=== PATIENT | female | born 1970 | race Caucasian/White ===

== ENCOUNTER → 2017-03-28 | Outpatient (CLI) | payer BC ==
--- NOTE | 2017-03-28 15:58 | MAMMOGRAPHY REPORT ---
BILATERAL DIGITAL SCREENING MAMMOGRAM TOMOSYNTHESIS WITH CAD: 03/28/2017 CLINICAL HISTORY: Routine screening. Patient has no complaints. TECHNIQUE: Breast tomosynthesis in addition to standard 2D mammography was performed. Current study was also evaluated with a Computer Aided Detection (CAD) system. COMPARISON: Comparison is made to exams dated: 09/04/2016 mammogram, 03/21/2016 mammogram, 06/14/2013 m ammogram - [facility], 04/18/2011 mammogram, 04/12/2011 mammogram, and 04/10/2010 mammo gram - [facility]. BREAST COMPOSITION: The tissue of both breasts is heterogeneously dense, which may obscure small mas ses. FINDINGS: No suspicious masses, calcifications, or areas of architectural distortion are noted in ei ther breast. There has been no significant interval change compared to prior exams. Bilateral asymme tries are stable. IMPRESSION: ACR BI-RADS CATEGORY 2: BENIGN There is no mammographic evidence of malignancy. A 1 year screening mammogram is recommended. The pa tient will receive written notification of the results. Approximately 10% of breast cancers are not detected with mammography. A negative mammographic report should not delay biopsy if a clinically suggestive mass is present. Marilyn Smith M.D. /:03/28/2017 13:36:44 [place] Helper: Veronica LISA(Rupa)(M), [facility] letter sent: Normal 1/2 BI-RADS Code: ACR BI-RADS Category 2: Benign
== END | disposition home or self-care (01) ==
LOC: C.MAMM 12:14
PROVIDERS: ATTEND Family Medicine
DX: Z12.31 Encounter for screening mammogram for malignant neoplasm of breast (principal)

== ENCOUNTER → 2017-12-17 | Outpatient (CLI) | payer BC, OTHER | END | disposition home or self-care (01) | LOC: C.RDSM 15:27 | PROVIDERS: ATTEND Family Medicine | DX: S83.241A Other tear of medial meniscus, current injury, right knee, initial encounter (principal); X58.XXXA Exposure to other specified factors, initial encounter; M25.461 Effusion, right knee ==

== ENCOUNTER 2021-10-25 15:22 | Observation (INO) ==
--- NOTE | 2021-10-25 16:12 | XRay Report ---
KUB CLINICAL HISTORY: constipation COMPARISON STUDY: CT of the abdomen and pelvis March 26, 2013. FINDINGS: Pelvic calcifications represent phleboliths. Bowel gas pattern is normal. Right abdominal surgical clip is noted. This is unchanged. There is no evidence for a bowel obstruction. Moderate lissette unt stool within the colon and is present. Moderate amount stool within the rectum is present. IMPRESSION: Moderate amount of stool within the colon and rectum. No bowel obstruction. ACT 112: Negative or not required by law. Electronically signed by: Hayden Robins M.D. 10/25/2021 4:11 PM
--- NOTE | 2021-10-25 20:15 | Emergency Department Note ---
Impression & Plan Ileus, Abdominal pain, Rectal pain, H/O hemorrhoidectomy ED Provider Note NAME: LEI NELSON AGE: 51 SEX: F : 1970 ARRIVES VIA: Walk-In INFORMANT: Patient, ED PROVIDER(S): Boogie Leon MD Chief Complaint: Rectal pain, recent hemorrhoidectomy, no BM x5 days HPI: Patient presents with concern for rectal abdominal pain status post recent hemorrhoidectomy completed by Dr. Asencio the dark at [facility] 5 days ago. The patient does complain of right-sided abdominal pain which is aching nonradiating. No recent falls or trauma. The patient denies any nausea or vomiting. The patient denies any alcohol tobacco or drug use. The patient is concerned about the possibility of ileus or obstruction. Patient states that she has tried to take stool softeners in addition to doing an enema yesterday but was unable to have a bowel movement. The patient does complain of postoperative discomfort of the rectum in the area where she had her hemorrhoidectomy. Patient denies any fevers or chills. ROS: See HPI for pertinent positives and negatives. A total of 10 systems were reviewed and otherwise negative. Past medical history: See below Surgical history: See below Social history: See below Physical Exam: GENERAL: Laying prone on the bed. NAD, non-toxic. EYE EXAM: Normal conjunctiva. PERRL, no anisocoria and EOM's grossly intact w/o pain. NECK: Supple, no nuchal rigidity, no adenopathy, non-tender. No signs of meningismus. LUNGS: Clear to auscultation. Normal chest wall mechanics. HEART: NSR, no MRG. ABDOMEN: Abdomen soft, mild right-sided mid abdominal discomfort without peritonitis, normo-active bowel sounds, no masses, no rebound or guarding. BACK: No CVA TTP. SKIN: No rashes and no bruising. Rectal: External exam shows sutures in place no active bleeding, no surrounding erythema or fluctuance noted. UPPER EXTREMITIES: Upper extremities are grossly normal. LOWER EXTREMITIES: Grossly normal, no edema. NEURO EXAM: A&O x3, cranial nerves II-XII grossly intact, normal speech, moves all 4 extremities on command w/o issue. Differential diagnoses: Appendicitis, ovarian cyst, ovarian torsion, ectopic , TOA, PID, infections, diverticulitis, UTI, obstruction, mesenteric ischemia, aortic pathology, inflammatory bowel disease, renal colic, PUD, pancreatitis, biliary pathology, hernia, volvulus, constipation, as well as other pathologies. Course: Patient was seen and evaluated the bedside. Full history physical exam was performed. Imaging Studies: See Below Cardiac monitoring: An order was placed for continuous cardiac monitoring. The monitor shows a rate of 72 with sinus rhythm. MDM: Patient was seen due to concern for rectal discomfort and associated inability have a bowel movement for 5 days. Patient had triage x-ray which was unremarkable. Patient did have blood work along with CT he was treated symptomatically with pain medication nausea medication as a precaution in addition to topical lidocaine. Patient CT shows fecal stasis with no evidence of impaction. The patient does have associated fluid-filled loops of small bowel which may relate to ileus. Given the possibility of ileus I did speak with the on-call surgery Manjinder Carl and asked with note patient could receive enema by mouth medications. He stated this would not be contraindicated after speaking with Dr. Villalobos. Patient was ordered mag citrate docusate senna and milk of mol asses enema. The patient did attempt an bowel movement still was unable to do so. Patient was still having significant discomfort and felt unable to go home at this time. I did speak the on-call hospitalist for observation. Patient was admitted by Dr. Morelos. Past Med/Surg History Medical History Sensorineural hearing loss of both ears Tinnitus, bilateral Surgical History H/O hemorrhoidectomy Social History Smoking Status: Never smoker Feels Safe at Home: Yes Allergies Allergies Allergy/AdvReac Type Severity Reaction Status Date / Time No Known Allergies Allergy Unverified 10/25/21 20:33 Home Meds Home Medications Medication Instructions Recorded Confirmed oxycodone-acetaminophen 5 mg-325 1 tab PO Q6 PRN 10/25/21 10/25/21 mg tablet sertraline 50 mg tablet 50 mg PO DAILY 10/25/21 10/25/21 Results & Data (ED) Vital Signs Vital Signs - 24 hr 10/25/21 15:32 10/25/21 20:20 10/25/21 21:24 Temperature 36.3 C L Temperature Source Temporal Artery Scan Pulse Rate 94 H Pulse Rate [Finger] 67 64 Respiratory Rate 17 16 16 Respiratory Effort / Characteristics Non-Labored Spontaneous Respiratory Depth Normal Blood Pressure 112/79 Blood Pressure [Left Arm] 143/86 H 120/71 Blood Pressure Mean 90 Blood Pressure Mean [Left Arm] 105 87 Pulse Oximetry 97 98 98 Oxygen Delivery Method Room Air Room Air Room Air Sepsis Recent Fever Within 48 Hours No Sepsis New/Unexplained Change in Mental Status No Sepsis Action Taken by Nursing No Action Required 10/25/21 23:14 Temperature Temperature Source Pulse Rate Pulse Rate [Finger] 68 Respiratory Rate 18 Respiratory Effort / Characteristics Respiratory Depth Blood Pressure Blood Pressure [Left Arm] 108/74 Blood Pressure Mean Blood Pressure Mean [Left Arm] 85 Pulse Oximetry 96 Oxygen Delivery Method Room Air Sepsis Recent Fever Within 48 Hours Sepsis New/Unexplained Change in Mental Status Sepsis Action Taken by [facility] Medications Current Medication List: was personally reviewed by me Laboratory Data Attestation: I reviewed the patient's lab results. Result diagrams: 10/25/21 20:36 10/25/21 20:36 Lab Results 10/25/21 10/25/21 Range/Units 20:36 20:36 WBC 11.19 H (4.8-10.8) K/uL RBC 4.71 (4.2-5.4) M/uL Hgb 13.8 (12.0-16.0) g/dL Hct 41.9 (37-47) % MCV 89.0 (80-100) fL MCH 29.3 (25-34) pg MCHC 32.9 (32-36) g/dL RDW Std Deviation 42.8 (36.4-46.3) fL RDW Coeff of Martha 13.0 (11.5-14.5) % Plt Count 318 (130-400) K/uL MPV 9.0 (7.4-10.4) fL Immature Gran % (Auto) 0.6 % Neut % (Auto) 67.3 % Lymph % (Auto) 23.6 % Alger % (Auto) 6.9 % Eos % (Auto) 1.3 % Baso % (Auto) 0.3 % Neut # (Auto) 7.54 H (1.4-6.5) K/uL Lymph # (Auto) 2.64 (1.2-3.4) K/uL Alger # (Auto) 0.77 H (0.11-0.59) K/uL Eos # (Auto) 0.14 (0-0.5) K/uL Baso # (Auto) 0.03 (0-0.2) K/uL Immature Gran # (Auto) 0.07 H (0.00-0.02) K/uL Sodium 136 (136-145) mmol/L Potassium 3.7 (3.5-5.1) mmol/L Chloride 104 (98-107) mmol/L Carbon Dioxide 27 (21-32) mmol/L Anion Gap 5 (3-11) BUN 8 (6-23) mg/dl Creatinine 0.65 (0.6-1.2) mg/dl Est Cr Clr Drug Dosing Not Reportable Est GFR ( Amer) 119.1 ml/min Est GFR (Non-Af Amer) 102.8 ml/min BUN/Creatinine Ratio 12.3 (10-20) Glucose 96 (70-99(Fasting)) mg/dl Calcium 8.8 (8.5-10.1) mg/dl Total Bilirubin 0.5 (0.2-1.0) mg/dl AST 13 (13-39) U/L ALT 17 (7-52) U/L Alkaline Phosphatase 56 (34-104) U/L Total Protein 6.4 (6.0-8.3) gm/dl Albumin 3.9 (3.4-5.0) gm/dl Globulin 2.5 (2.5-4.0) gm/dl Albumin/Globulin Ratio 1.6 (0.9-2) Lipase 15 (11-82) U/L Administered Medications Discontinued Medications Diphenhydramine HCl (Diphenhydramine 50 Mg/Ml Vial) 12.5 mg IV NOW STA Stop: 10/25/21 22:14 Last Admin: 10/25/21 22:26 Dose: 12.5 mg Documented by: [id number] Sodium Chloride (Nss 1000ml) 1,000 mls @ 999 mls/hr IV .Q1H1M ONE Stop: 10/25/21 21:29 Last Infusion: 10/25/21 22:06 Dose: 0 mls/hr Documented by: [id number] Admin: 10/25/21 20:55 Dose: 999 mls/hr Documented by: [id number] Ioversol (Optiray 320 100ml) 93 ml IV ONCE ONE Stop: 10/25/21 21:11 Last Admin: 10/25/21 21:14 Dose: 93 ml Documented by: [id number] Lidocaine (Lidocaine 5% Oint 30 Gm Tube) 1 appln EXT NOW STA Stop: 10/25/21 21:36 Last Admin: 10/25/21 22:25 Dose: 1 appln Documented by: [id number] Magnesium Citrate (Magnesium Citrate 296 Ml/Btl) 296 ml PO NOW STA Stop: 10/25/21 21:56 Last Admin: 10/25/21 22:26 Dose: 296 ml Documented by: [id number] Morphine Sulfate (Morphine Sulfate 4 Mg/Ml 1 Ml Carp\Vial) 4 mg IV NOW STA Stop: 10/25/21 20:30 Last Admin: 10/25/21 20:55 Dose: 4 mg Documented by: [id number] Morphine Sulfate (Morphine Sulfate 4 Mg/Ml 1 Ml Carp\Vial) 4 mg IV NOW STA Stop: 10/25/21 22:14 Last Admin: 10/25/21 22:25 Dose: 4 mg Documented by: [id number] Ondansetron HCl (Ondansetron Inj 2 Mg/Ml 2 Ml Vial) 4 mg IV NOW STA Stop: 10/25/21 20:30 Last Admin: 10/25/21 20:55 Dose: 4 mg Documented by: [id number] Senna/Docusate Sodium (Docusate Sodium/Senna 50/8.6mg Tab) 1 tab PO NOW STA Stop: 10/25/21 21:56 Last Admin: 10/25/21 22:26 Dose: 1 tab Documented by: [id number] Imaging Data Radiologist's Impression: KUB X-Ray 10/25/21 15:37 KUB CLINICAL HISTORY: constipation COMPARISON STUDY: CT of the abdomen and pelvis March 26, 2013. FINDINGS: Pelvic calcifications represent phleboliths. Bowel gas pattern is normal. Right abdominal surgical clip is noted. This is unchanged. There is no evidence for a bowel obstruction. Moderate amount stool within the colon and is present. Moderate amount stool within the rectum is present. IMPRESSION: Moderate amount of stool within the colon and rectum. No bowel obstruction. ACT 112: Negative or not required by law. Electronically signed by: Hayden Robins M.D. 10/25/2021 4:11 PM Abdomen/Pelvis CT 10/25/21 20:29 CT abd pelvis IV con only CLINICAL HISTORY: no BM x 5 days, hemorrhoidectomy, R sided ab pain COMPARISON STUDY: 03/26/2013 CT DOSE: 308.42 mGy.cm TECHNIQUE: Standard CT of the Abdomen and Pelvis was performed with IV contrast. A dose lowering technique was utilized adhering to the principles of ALARA. Contrast Volume: Optiray 320, 93 ml. The patient did not receive oral contrast. FINDINGS: Lung base: The lung bases are clear. Abdominal cavity: There is no evidence for abdominal mass, adenopathy or ascites. Liver: There is homogeneous attenuation of the liver parenchyma. There is no evidence for enhancing mass lesion. Spleen: There is homogeneous attenuation of the splenic parenchyma. There is no enhancing mass lesion. Pancreas: There is homogeneous attenuation of the pancreatic parenchyma. There is no evidence for mass lesion or peripancreatic fluid collection. Gall Bladder: Surgical clips are present. Adrenal glands: The adrenal glands are normal in size and attenuation. There is no evidence for enhancing mass lesion. Kidneys: There is homogeneous attenuation of the renal parenchyma bilaterally. There are again stable nonobstructing bilateral renal calculi with no evidence for hydronephrosis. There is no evidence for enhancing mass. Bowel: There is moderate fecal stasis without evidence for impaction. Fluid- filled loops of small bowel are seen throughout the abdomen and pelvis without evidence for disproportionate dilatation. The findings are characteristic of an ileus versus gastroenteritis. They could also be a reflection of the thecal stasis. There is no evidence for mass lesion. There are no inflammatory changes present. There is no evidence for free air. There is a normal appendix in the right lower quadrant. Bladder: The bladder is mildly distended with no evidence for focal mass, calculus or diverticulum. : There is no evidence for pelvic mass or adenopathy. There is no evidence for pelvic ascites. Vasculature: There is no evidence for aneurysmal dilatation of the abdominal aorta. Osseous structures: There is no acute osseous pathology. IMPRESSION: 1. Moderate fecal stasis without evidence for impaction. 2. Associated fluid-filled loops of small bowel which may relate to an ileus, gastroenteritis or be secondary to the fecal impaction. 3. No other evidence for acute intra-abdominal or pelvic abnormality. 4. Additional nonacute findings are delineated above. ACT 112: Negative or not required by law. Electronically signed by: Juan Huntley M.D. 10/25/2021 9:32 PM Discharge Plan Visit Data Chief Complaint: Abdominal Pain Stated Complaint: BOWEL BLOCKAGE POST OP, KNEE PAIN, ABDOMINAL PAIN ED Provider: Boogie Leon Discharge Problem: Ileus, Abdominal pain, Rectal pain, H/O hemorrhoidectomy Patient Disposition: Admitted As Inpatient Forms Stand Alone Forms: [facility] [employer] Prescriptions Prescriptions: No Action oxycodone-acetaminophen 5-325 mg tablet 1 tab PO Q6 PRN (Reason: Pain) RF: 0 sertraline 50 mg tablet 50 mg PO DAILY RF: 0 Referrals Referrals: Alda Vasquez DO [Primary Care Provider] -
[2021-10-25] MEDS ORDERED: SODIUM CHLORIDE 0.9% 1000ML 1,000 ML IV ONE (20:29)
[2021-10-25] MEDS ORDERED: MoRPHine SULFATE 4 MG/ML 1 ML CARP\\VIAL IV STA ×2 (20:29→22:13)
[2021-10-25] MEDS ORDERED: ONDANSETRON INJ 2 MG/ML 2 ML VIAL IV STA (20:29)
[2021-10-25 20:46] LABS: Basophils # (auto) 0.03 K/uL (0-0.2); Basophils % (auto) 0.3 %; Eosinophils # (auto) 0.14 K/uL (0-0.5); Eosinophils % (auto) 1.3 %; Hematocrit (blood only) 41.9 % (37-47); Hemoglobin 13.8 g/dL (12.0-16.0); Immature Granulocytes # (auto) 0.07 K/uL (0.00-0.02); Immature Granulocytes % (auto) 0.6 %; Lymphocytes # (auto) 2.64 K/uL (1.2-3.4); Lymphocytes % (auto) 23.6 %; Mean Corpuscular Hemoglobin 29.3 pg (25-34); Mean Corpuscular Hgb Conc 32.9 g/dL (32-36); Monocytes # (auto) 0.77 K/uL (0.11-0.59); Monocytes % (auto) 6.9 %; Neutrophils # (auto) 7.54 K/uL (1.4-6.5); Neutrophils % (auto) 67.3 %; Platelet Count 318 K/uL (130-400); RDW Standard Deviation 42.8 fL (36.4-46.3); Red Blood Count 4.71 M/uL (4.2-5.4); White Blood Count 11.19 K/uL (4.8-10.8)
[2021-10-25 21:07] LABS: Alanine Aminotransferase 17 U/L (7-52); Albumin Globulin Ratio 1.6 (0.9-2); Albumin Level 3.9 gm/dl (3.4-5.0); Alkaline Phosphatase 56 U/L (34-104); Anion Gap 5 (3-11); Aspartate Aminotransferase 13 U/L (13-39); BUN Creatinine Ratio 12.3 (10-20); Bilirubin,Total 0.5 mg/dl (0.2-1.0); Blood Urea Nitrogen 8 mg/dl (6-23); Calcium 8.8 mg/dl (8.5-10.1); Carbon Dioxide 27 mmol/L (21-32); Chloride 104 mmol/L (98-107); Est GFR (African American) 119.1 ml/min; Est GFR (Non-African American) 102.8 ml/min; Globulin 2.5 gm/dl (2.5-4.0); Glucose 96 mg/dl (70-99(Fasting)); Lipase 15 U/L (11-82); Potassium 3.7 mmol/L (3.5-5.1); Sodium 136 mmol/L (136-145); Total Protein 6.4 gm/dl (6.0-8.3)
[2021-10-25] MEDS ORDERED: OPTIRAY 320 100ml IV ONE (21:10)
[2021-10-25] MEDS ORDERED: LIDOCAINE 4% TOP 50 ML VIAL EXT ONE (21:26)
--- NOTE | 2021-10-25 21:34 | CT Scan Report ---
CT abd pelvis IV con only CLINICAL HISTORY: no BM x 5 days, hemorrhoidectomy, R sided ab pain COMPARISON STUDY: 03/26/2013 CT DOSE: 308.42 mGy.cm TECHNIQUE: Standard CT of the Abdomen and Pelvis was performed with IV contrast. A dose lowering nhan hnique was utilized adhering to the principles of ALARA. Contrast Volume: Optiray 320, 93 ml. The patient did not receive oral contrast. FINDINGS: Lung base: The lung bases are clear. Abdominal cavity: There is no evidence for abdominal mass, adenopathy or ascites. Liver: There is homogeneous attenuation of the liver parenchyma. There is no evidence for enhancing m ass lesion. Spleen: There is homogeneous attenuation of the splenic parenchyma. There is no enhancing mass lesion . Pancreas: There is homogeneous attenuation of the pancreatic parenchyma. There is no evidence for mas s lesion or peripancreatic fluid collection. Gall Bladder: Surgical clips are present. Adrenal glands: The adrenal glands are normal in size and attenuation. There is no evidence for enhan cing mass lesion. Kidneys: There is homogeneous attenuation of the renal parenchyma bilaterally. There are again stable nonobstructing bilateral renal calculi with no evidence for hydronephrosis. There is no evidence for enhancing mass. Bowel: There is moderate fecal stasis without evidence for impaction. Fluid-filled loops of small bow el are seen throughout the abdomen and pelvis without evidence for disproportionate dilatation. The f indings are characteristic of an ileus versus gastroenteritis. They could also be a reflection of the thecal stasis. There is no evidence for mass lesion. There are no inflammatory changes present. Ther e is no evidence for free air. There is a normal appendix in the right lower quadrant. Bladder: The bladder is mildly distended with no evidence for focal mass, calculus or diverticulum. : There is no evidence for pelvic mass or adenopathy. There is no evidence for pelvic ascites. Vasculature: There is no evidence for aneurysmal dilatation of the abdominal aorta. Osseous structures: There is no acute osseous pathology. IMPRESSION: 1. Moderate fecal stasis without evidence for impaction. 2. Associated fluid-filled loops of small bowel which may relate to an ileus, gastroenteritis or be s econdary to the fecal impaction. 3. No other evidence for acute intra-abdominal or pelvic abnormality. 4. Additional nonacute findings are delineated above. ACT 112: Negative or not required by law. Electronically signed by: Juan Huntley M.D. 10/25/2021 9:32 PM
[2021-10-25] MEDS ORDERED: LIDOCAINE 5% OINT 30 GM TUBE EXT STA (21:35)
[2021-10-25] MEDS ORDERED: DOCUSATE SODIUM/SENNA 50/8.6MG TAB PO STA (21:55)
[2021-10-25] MEDS ORDERED: MAGNESIUM CITRATE 296 ML/BTL PO STA (21:55)
[2021-10-25] MEDS ORDERED: diphenhydrAMINE 50 MG/ML VIAL IV STA (22:13)
[2021-10-26] MEDS ORDERED: MoRPHine SULFATE 2 MG/ML CARP IV STA (00:21)
--- NOTE | 2021-10-26 00:59 | Surgery Consultation ---
Date of Consultation October 26, 2021 Assessment & Plan (1) Ileus: Patient is being admitted to the hospital and the hospitalist service. Recommend proceeding as follows: Provide analgesics Provide antiemetics as needed Mild limited oral intake (would recommend liquids only for the present time) until patient has improved bowel function Consider initiating IV fluid for hydration if oral intake remains limited Taking patient on bowel regimen I discussed with the patient that she likely has an ileus related to a combination of things including her recent surgery as well as concomitant use of pain medication that she is taking for postoperative pain. At the time of my exam of the patient she did not have any evidence of acute abdomen as her abdomen was soft with positive bowel sounds and she was passing flatus. There is no need for acute surgical invention at this time. Remainder of plan as directed by the admitting service. Further surgical plans will be directed by the [facility] surgical service who will assume surgical care tomorrow. Supervising Physician Co-Signing Physician Notes Dr. Villalobos-patient admitted to the medical team with apparent ileus post hemorrhoidectomy as an outpatient I did not see the patient but I did briefly discussed the patient with Manjinder Henry. She is a patient of Dr. Asencio Manjinder will discuss her admission with covering surgical team History of Present Illness Reason for Consultation: Constipation/ileus History of Present Illness This is a 51-year-old female who underwent a hemorrhoidectomy secondary to prolapsed hemorrhoids on October 22 of this year. The surgery was performed at [facility] by Dr. Asencio of [facility] surgical department. Patient presented to the emergency department secondary to some generalized pain at her surgical site as well as generalized right sided abdominal pain and not being able to have a bowel movement. She reports her most recent bowel movement was on October 20 of this year which was 2 days prior to her surgery. She says that the abdominal discomfort is nonradiating. She denies any palliative or provocative factors. She has not had any nausea vomiting. She denies any fevers, shakes, chills. Patient notes that she is able to pass small amounts of flatus. The patient says that she is taken some stool softeners and also an enema yesterday but despite this problem was not able to have a bowel movement. Patient also adds that she has been taking Percocet as prescribed for postoperative pain. Today in the emergency department the patient had labs and imaging which independent reviewed. A CBC revealed white blood cell count was 11.1. Hemoglobin, hematocrit, and platelet count were within normal range. Chemistry profile showed sodium, potassium, BUN, and creatinine were within normal range. There is no significant elevation of LFTs or lipase. KUB was performed that showed a moderate amount of stool within the colon and rectum with no evidence of bowel obstruction. A CT scan of the abdomen pelvis showed the patient had a moderate amount of fecal stasis located in the colon without evidence of fecal impaction. Some associated fluid-filled loops of small bowel which were felt to represent a likely ileus. In the emergency department the patient was provided with some morphine as well as Zofran. In addition topical lidocaine was prescribed for her hemorrhoid surgical site. She was also given Senokot as well as magnesium citrate but was still unable to have a bowel movement. Because of this the treating emergency room physician felt that observation in the hospital was warranted. At the time of my interview the patient was in no distress. Allergies Allergy/AdvReac Type Severity Reaction Status Date / Time No Known Allergies Allergy Unverified 10/25/21 20:33 Home Medications Medication Instructions Recorded Confirmed Type oxycodone-acetaminophen 5 mg-325 1 tab PO Q6 PRN 10/25/21 10/25/21 History mg tablet sertraline 50 mg tablet 50 mg PO DAILY 10/25/21 10/25/21 History Patient History Medical History Sensorineural hearing loss of both ears Tinnitus, bilateral Surgical History H/O hemorrhoidectomy Social History Smoking Status: Never smoker Hx Alcohol Use: Yes Alcohol type: beer and wine Hx Substance Use: No Beliefs That Will Affect Care: None Current Living Situation: Family Feels Safe at Home: Yes Safety Concerns: Feels Safe At This Time Assistive Devices: Brace/Splint/Immobilizer and Glasses Assistive Devices Comment: R knee brace Review of Systems Constitutional: no fever and no chills Eyes: no diplopia Ear, Nose, Mouth, Throat: no ear pain Respiratory: no cough and no dyspnea Cardiovascular: no chest pain Gastrointestinal: + constipation; no abdominal pain, no nausea and no vomiting Genitourinary: no dysuria Musculoskeletal: no back pain Integumentary: no rash Neurologic: no localized weakness Physical Exam Constitutional: well developed and well nourished; no acute distress Eyes: no conjunctival abnormality ENMT: Ears: no hearing impairment Neck: trachea midline Respiratory: normal respiratory effort; no respiratory distress and no labored breathing Cardiovascular: Rate/Rhythm: regular rate and regular rhythm Gastrointestinal (Abdomen): Abdomen is soft. It is mildly distended. Bowel sounds are present. There is minimal pain with palpation. No rebound tenderness or guarding. Musculoskeletal: No calf tenderness Skin: no rashes Neurologic: moves all extremities Results & Data ([facility]) Vital Signs (Past 12 Hours) Vital Signs Temp Pulse Pulse Resp BP BP Pulse Ox 10/25/21 23:14 68 18 108/74 96 10/25/21 21:24 64 16 120/71 98 10/25/21 20:20 67 16 143/86 H 98 10/25/21 15:32 36.3 C L 94 H 17 112/79 97 PG Care Time/CCT Total # of Minutes Spent Total Time Spent with Patient: Total time spent is greater than 50% in coordination of care (as documented) at patient's floor/unit and/or counseling patient: Coding Level of Care Code 62418 Inpt Consult Level 5 Diagnoses Ileus K56.7
[2021-10-26] MEDS ORDERED: LACTULOSE SYRUP 20 GM/30 ML UDC PO STA (01:45)
[2021-10-26] MEDS ORDERED: LACTULOSE SYRUP 20 GM/30 ML UDC ONE ×2 (01:55→01:57)
--- NOTE | 2021-10-26 02:52 | History & Physical Report ---
Date of Service October 26, 2021 Assessment & Plan (1) Abdominal pain: Plan: Recent hemorrhoidectomy Ileus/narcotic induced constipation Anxiety/mood disorder, at baseline OBS GMF Bowel rest, bowel regimen Consider methylnaltrexone if without response to laxative agents Surgery consult Re: Postop eval DVT prophylaxis. SCDs Re: Bleeding ulcer hemorrhoidectomy site Full code Text document was generated using [employer] voice recognition software. It may contain grammatical or spelling errors. Kindly contact undersigned for clarification of any documentation item in question. History of Present Illness Chief Complaint: Constipation, abdominal pain Primary Care Provider: Alda Vasquez DO History obtained from patient and records. Medical history significant for anxiety/mood disorder, hemorrhoids status post recent surgery, history GDM. Patient underwent outpatient complex hemorrhoidectomy for grade 4 internal hemorrhoids at [facility] 4 days ago. No BM for about 6 days now. Patient taking Percocet 3 times daily. Worsening right-sided abdominal discomfort with nausea without emesis. No chest pain, no S OB, no fever, no chills. Expected rectal pain from bleeding post hemorrhoidectomy site according to patient. Patient consulted ER for worsening symptoms. Medical History as above Surgical History : Hemorrhoidectomy, cholecystectomy, BTL, umbilical hernia repair Family History : Colon cancer, disease, essential tremors, DM Personal/Social history : Non-smoker, no EtOH intake, [employer] employee Allergies Allergy/AdvReac Type Severity Reaction Status Date / Time No Known Allergies Allergy Unverified 10/25/21 20:33 Home Medications Medication Instructions Recorded Confirmed Type oxycodone-acetaminophen 5 mg-325 1 tab PO Q6 PRN 10/25/21 10/25/21 History mg tablet sertraline 50 mg tablet 50 mg PO DAILY 10/25/21 10/25/21 History oxycodone-acetaminophen 5 mg-325 1 tab PO Q6H PRN #20 tab 10/26/21 Rx mg tablet tramadol 50 mg tablet 50 mg PO Q6H PRN #20 tab 10/26/21 Rx Past Med/Surg History Medical History Sensorineural hearing loss of both ears Tinnitus, bilateral Surgical History H/O hemorrhoidectomy Social History Smoking Status: Never smoker Hx Alcohol Use: Yes Alcohol type: beer and wine Hx Substance Use: No Beliefs That Will Affect Care: None Current Living Situation: Family Feels Safe at Home: Yes Safety Concerns: Feels Safe At This Time Assistive Devices: None Assistive Devices Comment: R knee brace Review of Systems Review of Systems: As per HPI, all 10 systems reviewed, all other ROS negative Physical Exam Physical Exam: GENERAL: Slightly uncomfortable, no respiratory distress SKIN: Normal color, warm HEENT: Morning Sun palpebral conjunctivae, no ptosis, dry buccal mucosa NECK : Supple, no tenderness CHEST : CTA, no tenderness HEART : RRR, no obvious murmurs ABDOMEN: Some distention, minimal hypogastric tenderness EXTREMITIES : No LE swelling/tenderness, no other conspicuous deformities noted NEUROLOGIC : Coherent, no facial asymmetry, no other gross focality Results & Data Results & Data ([facility]) Vital Signs (Past 12 Hours) Vital Signs Temp Pulse Pulse Resp BP BP Pulse Ox 10/26/21 01:00 74 16 118/59 L 94 10/25/21 23:14 68 18 108/74 96 10/25/21 21:24 64 16 120/71 98 10/25/21 20:20 67 16 143/86 H 98 10/25/21 15:32 36.3 C L 94 H 17 112/79 97 Laboratory Results Laboratory Results WBC 11.19 K/uL (4.8-10.8) H 10/25/21 20:36 RBC 4.71 M/uL (4.2-5.4) 10/25/21 20:36 Hgb 13.8 g/dL (12.0-16.0) 10/25/21 20:36 Hct 41.9 % (37-47) 10/25/21 20:36 MCV 89.0 fL (80-100) 10/25/21 20:36 MCH 29.3 pg (25-34) 10/25/21 20:36 MCHC 32.9 g/dL (32-36) 10/25/21 20:36 RDW Std Deviation 42.8 fL (36.4-46.3) 10/25/21 20:36 RDW Coeff of Martha 13.0 % (11.5-14.5) 10/25/21 20:36 Plt Count 318 K/uL (130-400) 10/25/21 20:36 MPV 9.0 fL (7.4-10.4) 10/25/21 20:36 Immature Gran % (Auto) 0.6 % 10/25/21 20:36 Neut % (Auto) 67.3 % 10/25/21 20:36 Lymph % (Auto) 23.6 % 10/25/21:36 Long % (Auto) 6.9 % 10/25/21 20:36 Eos % (Auto) 1.3 % 10/25/21 20:36 Baso % (Auto) 0.3 % 10/25/21:36 Neut # (Auto) 7.54 K/uL (1.4-6.5) H 10/25/21:36 Lymph # (Auto) 2.64 K/uL (1.2-3.4) 10/25/21 20:36 Long # (Auto) 0.77 K/uL (0.11-0.59) H 10/25/21 20:36 Eos # (Auto) 0.14 K/uL (0-0.5) 10/25/21 20:36 Baso # (Auto) 0.03 K/uL (0-0.2) 10/25/21 20:36 Immature Gran # (Auto) 0.07 K/uL (0.00-0.02) H 10/25/21 20:36 Sodium 136 mmol/L (136-145) 10/25/21 20:36 Potassium 3.7 mmol/L (3.5-5.1) 10/25/21 20:36 Chloride 104 mmol/L (98-107) 10/25/21 20:36 Carbon Dioxide 27 mmol/L (21-32) 10/25/21:36 Anion Gap 5 (3-11) 10/25/21 20:36 BUN 8 mg/dl (6-23) 10/25/21 20:36 Creatinine 0.65 mg/dl (0.6-1.2) 10/25/21 20:36 Est Cr Clr Drug Dosing Not Reportable 10/25/21: Est GFR ( Amer) 119.1 ml/min 02/10/22 20:36 Est GFR (Non-Af Amer) 102.8 ml/min 10/25/21 20:36 BUN/Creatinine Ratio 12.3 (10-20) 10/25/21 20:36 Glucose 96 mg/dl (70-99(Fasting)) 10/25/21 20:36 Calcium 8.8 mg/dl (8.5-10.1) 10/25/21 20:36 Total Bilirubin 0.5 mg/dl (0.2-1.0) 10/25/21 20:36 AST 13 U/L (13-39) 10/25/21 20:36 ALT 17 U/L (7-52) 10/25/21 20:36 Alkaline Phosphatase 56 U/L (34-104) 10/25/21 20:36 Total Protein 6.4 gm/dl (6.0-8.3) 10/25/21 20:36 Albumin 3.9 gm/dl (3.4-5.0) 10/25/21 20:36 Globulin 2.5 gm/dl (2.5-4.0) 10/25/21 20:36 Albumin/Globulin Ratio 1.6 (0.9-2) 10/25/21 20:36 Lipase 15 U/L (11-82) 10/25/21 20:36 SARS-CoV-2, RNA, NAAT NEGATIVE (NEGATIVE) 10/26/21 00:40 Impressions KUB X-Ray 10/25/21 15:37 KUB CLINICAL HISTORY: constipation COMPARISON STUDY: CT of the abdomen and pelvis March 26, 2013. FINDINGS: Pelvic calcifications represent phleboliths. Bowel gas pattern is normal. Right abdominal surgical clip is noted. This is unchanged. There is no evidence for a bowel obstruction. Moderate amount stool within the colon and is present. Moderate amount stool within the rectum is present. IMPRESSION: Moderate amount of stool within the colon and rectum. No bowel obstruction. ACT 112: Negative or not required by law. Electronically signed by: Hayden Robins M.D. 10/25/2021 4:11 PM Abdomen/Pelvis CT 10/25/21 20:29 CT abd pelvis IV con only CLINICAL HISTORY: no BM x 5 days, hemorrhoidectomy, R sided ab pain COMPARISON STUDY: 03/26/2013 CT DOSE: 308.42 mGy.cm TECHNIQUE: Standard CT of the Abdomen and Pelvis was performed with IV contrast. A dose lowering technique was utilized adhering to the principles of ALARA. Contrast Volume: Optiray 320, 93 ml. The patient did not receive oral contrast. FINDINGS: Lung base: The lung bases are clear. Abdominal cavity: There is no evidence for abdominal mass, adenopathy or ascites. Liver: There is homogeneous attenuation of the liver parenchyma. There is no evidence for enhancing mass lesion. Spleen: There is homogeneous attenuation of the splenic parenchyma. There is no enhancing mass lesion. Pancreas: There is homogeneous attenuation of the pancreatic parenchyma. There is no evidence for mass lesion or peripancreatic fluid collection. Gall Bladder: Surgical clips are present. Adrenal glands: The adrenal glands are normal in size and attenuation. There is no evidence for enhancing mass lesion. Kidneys: There is homogeneous attenuation of the renal parenchyma bilaterally. There are again stable nonobstructing bilateral renal calculi with no evidence for hydronephrosis. There is no evidence for enhancing mass. Bowel: There is moderate fecal stasis without evidence for impaction. Fluid- filled loops of small bowel are seen throughout the abdomen and pelvis without evidence for disproportionate dilatation. The findings are characteristic of an ileus versus gastroenteritis. They could also be a reflection of the thecal stasis. There is no evidence for mass lesion. There are no inflammatory changes present. There is no evidence for free air. There is a normal appendix in the right lower quadrant. Bladder: The bladder is mildly distended with no evidence for focal mass, calculus or diverticulum. : There is no evidence for pelvic mass or adenopathy. There is no evidence for pelvic ascites. Vasculature: There is no evidence for aneurysmal dilatation of the abdominal aorta. Osseous structures: There is no acute osseous pathology. IMPRESSION: 1. Moderate fecal stasis without evidence for impaction. 2. Associated fluid-filled loops of small bowel which may relate to an ileus, gastroenteritis or be secondary to the fecal impaction. 3. No other evidence for acute intra-abdominal or pelvic abnormality. 4. Additional nonacute findings are delineated above. ACT 112: Negative or not required by law. Electronically signed by: Juan Huntley M.D. 10/25/2021 9:32 PM (1) Abdominal pain Abdominal location: unspecified location Qualified Code(s): R10.9 - Unspecified abdominal pain
[2021-10-26] MEDS ORDERED: IBUPROFEN 200 MG TAB PO PRN (02:58)
[2021-10-26] MEDS ORDERED: LACTATED RINGER'S 1,000 ML IV STA (02:59)
[2021-10-26 03:18] LABS: Magnesium 2.1 mg/dl (1.7-2.4)
[2021-10-26] MEDS ORDERED: LACTULOSE SYRUP 20 GM/30 ML UDC PO ONE (03:30)
[2021-10-26] MEDS ORDERED: POLYETHYLENE (MIRALAX) 17 GM PACK PO PRN (03:39)
[2021-10-26] MEDS ORDERED: PROMETHAZINE HCL 12.5 MG in SODIUM CHLORIDE 0.9% 50 ML IV PRN (03:39)
[2021-10-26] MEDS ORDERED: LORazepam 0.5 MG/1 ML VIAL IV PRN (03:39)
[2021-10-26] MEDS: oxyCODONE HCL IR 5 MG TAB (IMMEDIATE RELEASE) PO PRN ×2 (03:46→11:01)
[2021-10-26] MEDS ORDERED: diphenhydrAMINE 50 MG/ML VIAL IV STA (07:59)
[2021-10-26] MEDS: DOCUSATE SODIUM/SENNA 50/8.6MG TAB PO SCH ×2 (08:12→20:06)
[2021-10-26] MEDS: SERTRALINE HCL 50 MG TABLET PO SCH (08:12)
[2021-10-26 09:27] LABS: iSTAT Creatinine 0.6 mg/dl (0.6-1.3); iSTAT Hemoglobin 12.9 g/dl (12.0-16.0); iSTAT Ionized Calcium 1.19 mmol/l (1.12-1.32); iSTAT Potassium 3.6 mmol/L (3.3-5.0)
[2021-10-26] MEDS ORDERED: traMADol HCL 50 MG TABLET PO PRN (10:59)
--- NOTE | 2021-10-26 11:22 | Surgery Progress Note ---
Date of Service October 26, 2021 Assessment & Plan (1) Ileus: (2) Abdominal pain: (3) Rectal pain: (4) H/O hemorrhoidectomy: Plan: POD # 4 s/p open hemorrhoidectomy at [facility] by Dr. Asencio - Constipation and fecal retention likely secondary to narcotic use and hemorrhoidectomy procedure - + bowel function after multiple bowel regimens and oral lactulose - abdomen is soft, nondistended, minimal tenderness - no n/v, tolerating diet - no signs of postop infection Plan: Needs better pain management: Alternate IV Toradol with PO Percocet. Will also add PO Tramadol as needed. Okay with Topical Lidocaine May apply ice to area as needed Can apply tucks pads Sitz baths as needed Continue BID stool softener Laxative as needed Ambulate advance diet for lunch Chromic suture will fall out/dissolve on its own Discussed with Dr. Gracia who agrees with above. Admission and Anticipated Discharge Date Admission Date: October 26, 2021 Subjective still having a lot of pain, nothing seems to help. Last medication was 200 mg of Ibuprofen. Had Morphine and topical Lidocaine in ED with little improvement. multiple loose bowel movements this morning after the lactulose no nausea or vomiting abdominal pain is better, cramping still present but less severe tolerated clear liquids able to urinate Physical Exam Constitutional: WD/WN, vitals as above no acute distress and not ill appearing Neck: normal visual inspection and trachea midline Respiratory: normal respiratory effort; no respiratory distress Gastrointestinal (Abdomen): Inspection/Auscultation: abdomen normal to inspection and normal bowel sounds; abdomen not distended Percussion/Palpation: + abdomen tender (mild in RLQ) and abdomen soft; no guarding and abdomen not rigid Rectal Exam: normal visual inspection of rectum and + rectal tenderness; no rectal laceration and no rectal lesions There is tenderness to palpation at the anus. There is chromic suture sticking out of the anus. No surrounding induration or fluctuance. No evidence of cellulitis. Internal examination not completed. Skin: no rashes, warm and dry Psychiatric: Orientation: alert and oriented x 3 Results & Data ([facility]) Vital Signs (Past 12 Hours) Vital Signs Temp Pulse Resp BP BP Pulse Ox 10/26/21 07:42 36.7 C 93 H 16 117/66 98 02/11/22 03:40 36.6 C 64 17 108/68 98 10/26/21 03:00 73 16 120/63 98 10/26/21 01:00 74 16 118/59 L 94 Laboratory Results 10/26/21 10/25/21 10/25/21 Range/Units 00:40 20:46 20:36 WBC (4.8-10.8) K/uL RBC (4.2-5.4) M/uL Hgb (12.0-16.0) g/dL POC Hgb 12.9 (12.0-16.0) g/dl Hct (37-47) % POC Hct 38 (37-47) % MCV (80-100) fL MCH (25-34) pg MCHC (32-36) g/dL RDW Std Deviation (36.4-46.3) fL RDW Coeff of Martha (11.5-14.5) % Plt Count (130-400) K/uL MPV (7.4-10.4) fL Immature Gran % (Auto) % Neut % (Auto) % Lymph % (Auto) % Hill % (Auto) % Eos % (Auto) % Baso % (Auto) % Neut # (Auto) (1.4-6.5) K/uL Lymph # (Auto) (1.2-3.4) K/uL Hill # (Auto) (0.11-0.59) K/uL Eos # (Auto) (0-0.5) K/uL Baso # (Auto) (0-0.2) K/uL Immature Gran # (Auto) (0.00-0.02) K/uL POC Sodium 137 (135-144) mmol/L Sodium 136 (136-145) mmol/L POC Potassium 3.6 (3.3-5.0) mmol/L Potassium 3.7 (3.5-5.1) mmol/L POC Chloride 103 (101-112) mmol/L Chloride 104 (98-107) mmol/L Carbon Dioxide 27 (21-32) mmol/L POC Total CO2 25 (24-31) mmol/L Anion Gap 5 (3-11) POC Anion Gap 14.0 L (16-25) mmol/L POC BUN 7 (7-18) mg/dl BUN 8 (6-23) mg/dl Creatinine 0.65 (0.6-1.2) mg/dl POC Creatinine 0.6 (0.6-1.3) mg/dl Est Cr Clr Drug Dosing Not Reportable Est GFR ( Amer) 119.1 ml/min Est GFR (Non-Af Amer) 102.8 ml/min BUN/Creatinine Ratio 12.3 (10-20) Glucose 96 (70-99(Fasting)) mg/dl POC Glucose (other) 98 (70-99) mg/dl Calcium 8.8 (8.5-10.1) mg/dl POC Ioniz Calcium Capo 1.19 (1.12-1.32) mmol/l Magnesium 2.1 (1.7-2.4) mg/dl Total Bilirubin 0.5 (0.2-1.0) mg/dl AST 13 (13-39) U/L ALT 17 (7-52) U/L Alkaline Phosphatase 56 (34-104) U/L Total Protein 6.4 (6.0-8.3) gm/dl Albumin 3.9 (3.4-5.0) gm/dl Globulin 2.5 (2.5-4.0) gm/dl Albumin/Globulin Ratio 1.6 (0.9-2) Lipase 15 (11-82) U/L SARS-CoV-2, RNA, NAAT NEGATIVE (NEGATIVE) 10/25/21 Range/Units 20:36 WBC 11.19 H (4.8-10.8) K/uL RBC 4.71 (4.2-5.4) M/uL Hgb 13.8 (12.0-16.0) g/dL POC Hgb (12.0-16.0) g/dl Hct 41.9 (37-47) % POC Hct (37-47) % MCV 89.0 (80-100) fL MCH 29.3 (25-34) pg MCHC 32.9 (32-36) g/dL RDW Std Deviation 42.8 (36.4-46.3) fL RDW Coeff of Martha 13.0 (11.5-14.5) % Plt Count 318 (130-400) K/uL MPV 9.0 (7.4-10.4) fL Immature Gran % (Auto) 0.6 % Neut % (Auto) 67.3 % Lymph % (Auto) 23.6 % Hill % (Auto) 6.9 % Eos % (Auto) 1.3 % Baso % (Auto) 0.3 % Neut # (Auto) 7.54 H (1.4-6.5) K/uL Lymph # (Auto) 2.64 (1.2-3.4) K/uL Hill # (Auto) 0.77 H (0.11-0.59) K/uL Eos # (Auto) 0.14 (0-0.5) K/uL Baso # (Auto) 0.03 (0-0.2) K/uL Immature Gran # (Auto) 0.07 H (0.00-0.02) K/uL POC Sodium (135-144) mmol/L Sodium (136-145) mmol/L POC Potassium (3.3-5.0) mmol/L Potassium (3.5-5.1) mmol/L POC Chloride (101-112) mmol/L Chloride (98-107) mmol/L Carbon Dioxide (21-32) mmol/L POC Total CO2 (24-31) mmol/L Anion Gap (3-11) POC Anion Gap (16-25) mmol/L POC BUN (7-18) mg/dl BUN (6-23) mg/dl Creatinine (0.6-1.2) mg/dl POC Creatinine (0.6-1.3) mg/dl Est Cr Clr Drug Dosing Est GFR ( Amer) ml/min Est GFR (Non-Af Amer) ml/min BUN/Creatinine Ratio (10-20) Glucose (70-99(Fasting)) mg/dl POC Glucose (other) (70-99) mg/dl Calcium (8.5-10.1) mg/dl POC Ioniz Calcium Capo (1.12-1.32) mmol/l Magnesium (1.7-2.4) mg/dl Total Bilirubin (0.2-1.0) mg/dl AST (13-39) U/L ALT (7-52) U/L Alkaline Phosphatase (34-104) U/L Total Protein (6.0-8.3) gm/dl Albumin (3.4-5.0) gm/dl Globulin (2.5-4.0) gm/dl Albumin/Globulin Ratio (0.9-2) Lipase (11-82) U/L SARS-CoV-2, RNA, NAAT (NEGATIVE) (1) Abdominal pain Abdominal location: unspecified location Qualified Code(s): R10.9 - Un specified abdominal pain
[2021-10-26] MEDS ORDERED: LIDOCAINE 5% OINT 30 GM TUBE EXT PRN (11:27)
[2021-10-26] MEDS: KETOROLAC 30 MG/ML VIAL IV PRN ×2 (11:49→17:20)
[2021-10-26] MEDS ORDERED: BENZOCAINE 20% AER SPR 82.5 GM CAN EXT PRN (15:25)
[2021-10-26] MEDS: ACETAMINOPHEN 325 MG TAB PO PRN ×2 (16:51→20:05)
[2021-10-26] MEDS: BENZOCAINE 20% AER SPR 82.5 GM CAN EXT PRN (17:00)
--- NOTE | 2021-10-26 17:53 | Communication Note ---
Date of Service: October 26, 2021 Patient seen and examined at bedside for abdominal pain and constipation. Patient recently had outpatient complex hemorrhoidectomy for grade 4 internal hemorrhoids 4 days ago prior to arrival. Patient did not have any bowel movements afterward. Surgery is following. Recommendations appreciated. Patient did have a bowel movement in the morning, will start her on diet and advance as tolerated. Patient reports still feeling bloated and minimal discomfort in the belly. On examination: GENERAL: Alert and oriented x3. NAD, on RA. HEENT: No pallor, no icterus. Pupils equal, round and reactive to light. Oral mucosa moist. NECK: No JVD, no neck masses. HEART: S1 and S2 heard. Regular rate and rhythm. No murmur, no gallop. RESPIRATORY SYSTEM: Normal AP diameter. No accessory muscle use. No wheezing, no crackles. ABDOMEN: Soft, bowel sounds present, minimal discomfort, no distention. CENTRAL NERVOUS SYSTEM: No facial droop. Speech is clear. Obeys simple commands. Moves extremities. EXTREMITIES: No edema, no erythema seen.
[2021-10-26] MEDS: POLYETHYLENE (MIRALAX) 17 GM PACK PO SCH (20:06)
[2021-10-27] MEDS: KETOROLAC 30 MG/ML VIAL IV PRN ×2 (00:07→08:28)
[2021-10-27] MEDS: BENZOCAINE 20% AER SPR 82.5 GM CAN EXT PRN ×2 (00:10→10:29)
[2021-10-27] MEDS: ACETAMINOPHEN 325 MG TAB PO PRN (04:05)
[2021-10-27] MEDS: DOCUSATE SODIUM/SENNA 50/8.6MG TAB PO SCH (08:27)
[2021-10-27] MEDS: SERTRALINE HCL 50 MG TABLET PO SCH (08:28)
[2021-10-27] MEDS: POLYETHYLENE (MIRALAX) 17 GM PACK PO SCH (08:28)
[2021-10-27] MEDS ORDERED: POLYETHYLENE (MIRALAX) 17 GM PACK PO SCH (09:00)
--- NOTE | 2021-10-27 11:31 | Discharge Summary ---
Date of Service October 27, 2021 Admission HPI Per Admitting Provider History obtained from patient and records. Medical history significant for anxiety/mood disorder, hemorrhoids status post recent surgery, history GDM. Patient underwent outpatient complex hemorrhoidectomy for grade 4 internal hemorrhoids at [facility] 4 days ago. No BM for about 6 days now. Patient taking Percocet 3 times daily. Worsening right-sided abdominal discomfort with nausea without emesis. No chest pain, no S OB, no fever, no chills. Expected rectal pain from bleeding post hemorrhoidectomy site according to patient. Patient consulted ER for worsening symptoms. Medical History as above Surgical History : Hemorrhoidectomy, cholecystectomy, BTL, umbilical hernia repair Family History : Colon cancer, disease, essential tremors, DM Personal/Social history : Non-smoker, no EtOH intake, [employer] employee Admission Exam Per Admitting Provider GENERAL: Slightly uncomfortable, no respiratory distress SKIN: Normal color, warm HEENT: [place] palpebral conjunctivae, no ptosis, dry buccal mucosa NECK : Supple, no tenderness CHEST : CTA, no tenderness HEART : RRR, no obvious murmurs ABDOMEN: Some distention, minimal hypogastric tenderness EXTREMITIES : No LE swelling/tenderness, no other conspicuous deformities noted NEUROLOGIC : Coherent, no facial asymmetry, no other gross focality Principal Diagnosis Rectal pain Recent status post hemorrhoidectomy Ileus Discharge Exam GENERAL: Alert and oriented x3. NAD, on RA. HEENT: No pallor, no icterus. Pupils equal, round and reactive to light. Oral mucosa moist. NECK: No JVD, no neck masses. HEART: S1 and S2 heard. Regular rate and rhythm. No murmur, no gallop. RESPIRATORY SYSTEM: Normal AP diameter. No accessory muscle use. No wheezing, no crackles. ABDOMEN: Soft, bowel sounds present, minimal discomfort, no distention. CENTRAL NERVOUS SYSTEM: No facial droop. Speech is clear. Obeys simple commands. Moves extremities. EXTREMITIES: No edema, no erythema seen. Discharge Data Allergies Allergy/AdvReac Type Severity Reaction Status Date / Time No Known Allergies Allergy Unverified 10/25/21 20:33 Consultations 10/26/21 03:39 Consult General Surgery Routine Ordered Studies 10/25/21 20:29 CT abd pelvis IV con only Stat Hospital Course (1) Ileus: (2) Rectal pain: (3) H/O hemorrhoidectomy: Patient recently had outpatient complex hemorrhoidectomy for grade 4 internal hemorrhoids 4 days ago prior to arrival. Patient did not have any bowel movements afterward. Surgery evaluated. Recommendations appreciated. Patient did have a bowel movement in the morning off 10/26, tolerated diet well. Patient reports improvement in her belly pain or cramps and her rectal pain. Patient to continue with benzocaine spray, MiraLAX and stool softener as prescribed. Patient to follow-up with your primary care physician and surgery doctor as an outpatient upon discharge. Patient feels fine, tolerating diet, moving gas, improvement in the belly pain significantly. Following instructions were communicated at the time of discharge: Follow-up with your primary care physician within a week time. Continue with topical lidocaine, ice compression, Tucks pads, sitz baths. Continue with twice daily stool softener and laxative as needed. Follow-up with surgery as an outpatient. Take medications as prescribed. Total Time Total Time Spent Total Time Spent (In Minutes): 32 Discharge Plan Discharge Items Patient Disposition: Home - Self-Care Reason For Visit: ABD PAIN Discharge Diagnosis: Rectal pain Recent status post hemorrhoidectomy Ileus Activity: Resume your previous activity Non-emergency contact: Primary Care Provider Call non-emergency contact if: you have any medication questions, your symptoms worsen, your pain is not controlled and your temperature is above 101 Follow-up/Referrals: Alda Vasquez DO [Primary Care Provider] - Diet: Regular Addtl Attending Provider Instructions: Follow-up with your primary care physician within a week time. Continue with topical lidocaine, ice compression, Tucks pads, sitz baths. Continue with twice daily stool softener and laxative as needed. Follow-up with surgery as an outpatient. Take medications as prescribed. Addtl [employer] Provider Instructions: ACTIVITY RECOMMENDATIONS: * No heavy lifting for 1 week. MEDICATIONS: Resume medications unless instructed otherwise by your surgeon. Recommend alternating the Percocet with the Ultram to ensure you pain is adequately controlled. (Take a Percocet and then 3 hours later can take an Ult ender.) * Percocet 5/325 mg 1 every 6 hours, as needed for pain * Ultram 50 mg tablet every 6 hours as needed for pain * Colace 100 mg 2 times per day * Ibuprofen 600 mg every 6 hours, as needed for pain (take with food) * Would also recommend daily Miralax while taking the narcotic pain medication to prevent constipation. * If you are still having some constipation or hard stools with above stool softener and Miralax, add daily fiber supplemental, increase fiber in diet, and increase water intake. SPECIAL CARE INSTRUCTIONS: * Shower or sitz bath 3 times per day and after each bowel movement. * Call the surgeon's office with any questions or concerns - (ex. temperature higher than 101 degrees F, excessive bleeding or pain). FOLLOW UP VISIT: If not already scheduled, please call the office to schedule a one-two week follow-up appointment. Office number . Pending Studies at Discharge: No Stand-Alone Forms: My [facility], Smoking Cessation Medications and DC Order Prescriptions: New oxycodone-acetaminophen 5-325 mg tablet 1 tab PO Q6H PRN (Reason: pain) Qty: 20 RF: 0 tramadol 50 mg tablet 50 mg PO Q6H PRN (Reason: pain) Qty: 20 RF: 0 polyethylene glycol 3350 [Miralax] 17 gram Powder In Packet 17 g PO BID PRN (Reason: constipation) 7 Days Qty: 14 RF: 0 sennosides-docusate sodium [Senokot-S] 8.6-50 mg Tablet 2 tab PO BID 7 Days Qty: 28 RF: 0 Dermoplast (with menthol) 20-0.5 % Aerosol 1 spray EXT QID PRN (Reason: pain) Qty: 78 RF: 0 Continued sertraline 50 mg tablet 50 mg PO DAILY RF: 0 Discontinued oxycodone-acetaminophen 5-325 mg tablet 1 tab PO Q6 PRN (Reason: Pain) RF: 0 Discharge Orders: Discharge Order (Routine); Ordered 10/27/21 Ordered By: Silvio Byers Admission Data Admit Date/Time: 10/26/21 02:58 Attending Provider: Silvio Byers Admit Provider: Aris Morelos Primary Care Provider: Alda Vasquez Other Providers: Mauro Asencio
--- NOTE | 2021-10-27 12:56 | Surgery Progress Note ---
Date of Service October 27, 2021 Assessment & Plan (1) Ileus: (2) Abdominal pain: (3) Rectal pain: (4) H/O hemorrhoidectomy: Plan: POD # 5 s/p open hemorrhoidectomy at [facility] by Dr. Asencio Doing much better today. Pain is controlled. Number of bowel movements yesterday. We will discharge to home. She will follow-up in clinic as scheduled. She will call with any new or concerning symptoms. Admission and Anticipated Discharge Date Admission Date: October 26, 2021 Subjective She is feeling much better today. She denies significant pain. She had a number of bowel movements yesterday. She would like to go home. Physical Exam Constitutional: WD/WN, vitals as above Neck: trachea midline, no thyromegaly Gastrointestinal (Abdomen): Percussion/Palpation: abdomen soft; abdomen nontender Musculoskeletal: Extremities: no cyanosis and no clubbing Skin: no rashes, warm and dry Psychiatric: A+Ox3, euthymic affect Results & Data ([facility]) Vital Signs (Past 12 Hours) Vital Signs Temp Pulse Resp BP Pulse Ox 10/27/21 07:52 36.5 C 70 16 124/74 99 (1) Abdominal pain Abdominal location: unspecified location Qualified Code(s): R10.9 - Unspecified abdominal pain
== END 2021-10-27 12:53 | disposition home or self-care (01) ==
LOC: 3N 15:22 → ED 15:22 → 3N 10-26 03:10